=== PATIENT | female | born 1980 | race Caucasian/White ===

== ENCOUNTER 2020-06-23 07:05 | Emergency (ER) | payer BC, SELFPAY ==
[2020-06-23 07:16] VITALS: BP 113/82; PULSE 89; RESP 14; TEMP 37.2; O2SAT 98
--- NOTE | 2020-06-23 07:35 | ED.EYEPROB ---
HPI - Eye Problem General Chief complaint: Eye Problems Stated complaint: right eye-poss sap Time Seen by Provider: 06/23/20 07:28 Source: patient Mode of arrival: ambulatory Limitations: no limitations History of Present Illness HPI Narrative: Patient is 39 years old white female presents with burning sensation, tearing of the right eye started yesterday morning, worse this morning. 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 Patient denies any fever, chills. Patient wears a contact lenses Related Data Allergies Allergy/AdvReac Type Severity Reaction Status Date / Time No Known Allergies Allergy Verified 06/23/20 07:06 Review of Systems Review of Systems: Narrative: CONSTITUTIONAL: Denies fever, chills, or sweats. EYES: Denies visual changes, redness, or discharge. ENT: Denies rhinorrhea, congestion, sore throat, or otalgia. CARDIOVASCULAR: Denies chest pain, palpitations, or edema. RESPIRATORY: Denies cough or dyspnea. GASTROINTESTINAL: Denies abdominal pain, nausea, vomiting, or diarrhea. GENITOURINARY: Denies dysuria or hematuria. SKIN: Denies rash or itching. MUSCULOSKELETAL: Denies back pain, joint pain, or myalgia. NEUROLOGIC: Denies headache, numbness, or weakness. PSYCHIATRIC: Denies anxiety or depression. PMFSH Family History Family History Father Diabetes mellitus Social History Social History Smoking status: Never smoker Second hand tobacco smoke exposure: No Alcohol intake: never Exam Narrative: Exam Narrative: General appearance: Well-developed, well-nourished Skin: Normal color Head: Normocephalic, nontraumatic Eyes: Right the eye showed slight injected conjunctiva, with clear tears ENT: Oropharynx normal, ears normal, nose normal Neurologic: Alert and oriented ?3, Course Course Emergency Course: Stable Vital Signs Vital signs: Vital Signs Temperature 37.2 C 06/23/20 07:16 Pulse Rate 89 06/23/20 07:16 Respiratory Rate 14 06/23/20 07:16 Blood Pressure 113/82 06/23/20 07:16 Pulse Oximetry 98 06/23/20 07:16 Temperature 37.2 C 06/23/20 07:16 Pulse Rate 89 06/23/20 07:16 Respiratory Rate 14 06/23/20 07:16 Blood Pressure 113/82 06/23/20 07:16 Pulse Oximetry 98 06/23/20 07:16 MDM - Eye Problem MDM Narrative Medical decision making narrative: Allergic conjunctivitis is my concern. Eye irrigation ordered. Critical Care Time Critical Care Time Critical Care Time: No Discharge Plan Discharge Clinical Impression: Conjunctivitis Qualifiers: Conjunctivitis type: acute Acute conjunctivitis type: unspecified Laterality: right Qualified Code(s): H10.31 - Unspecified acute conjunctivitis, right eye Patient Disposition: Home, Self-Care Condition: Stable Instructions: Conjunctivitis (ED) Additional Instructions: Return if symptoms are worsening , call patient care director for appointment, take Tylenol as as needed for aches and pain, continue home medications. Do not wear contact lenses for 5 days, cool compresses Call [facility] for appointment, phone #[phone] Prescriptions: New ciprofloxacin HCl 0.3 % drops See Rx Instructions .ROUTE .COMPLEX Qty: 10 RF: 0 Zyrtec 10 mg capsule 10 mg PO DAILY PRN (Reason: allergy symptoms) Qty: 10 RF: 0 Follow-up/Referrals: Tierra Ga MD [Primary Care Provider] -
--- NOTE | 2020-06-23 08:10 | PC.NURSE ---
Per EDP via verbal order readback give two drops of tetracaine in right eye prior to eye irrigation.
--- NOTE | 2020-06-23 08:32 | PC.NURSE ---
NS was used for eye irrigation via tima lens
[2020-06-23 08:33] VITALS: BP 116/80; PULSE 73; RESP 14; O2SAT 99
== END 2020-06-23 08:35 | disposition home or self-care (01) ==
PROVIDERS: Emergency Provider Emergency Medicine; PCP Family Medicine
DX: H10.31 Unspecified acute conjunctivitis, right eye (principal)
CPT/HCPCS: 99283; J7030